=== PATIENT | male | born 1990 | race Caucasian/White ===

== ENCOUNTER 2018-05-03 14:15 | Emergency (ER) | payer OTHER ==
[2018-05-03 14:27] VITALS: BP 134/80; TEMP 99.4; BMI 23.6
[2018-05-03] MEDS ORDERED: POTASSIUM CHL 10% ORAL SOL PO STA (15:09)
--- NOTE | 2018-05-03 15:11 | CT ---
EXAM: CT abdomen and pelvis without contrast HISTORY: Nausea and vomiting TECHNIQUE: Multi-slice transaxial helical with coronal and sagittal reformed images COMPARISON: CT abdomen/pelvis from 11/12/2015 FINDINGS: The lung bases are free of acute airspace or interstitial opacities. The heart size is nor mal. There are no pericardial or pleural effusions. The hepatic attenuation is normal relative to the spleen. The gallbladder is present without biliary dilatation. The pancreas and adrenal glands are normal. The spleen has normal size attenuation. The kidneys and ureters are normal. The bladder is empty. The intestines maintain normal caliber. The appendix is normal. No lymphadenopathy or ascites are appreciated. The aorta has normal caliber . The bones are free of suspicious osteolytic or osteoblastic lesions. IMPRESSION: 1. Normal appendix. Nonobstructive intestinal gas pattern. 2. Normal renal collecting systems. 3. No biliary dilatation.
--- NOTE | 2018-05-03 15:21 | ED.PDOC ---
General ED Provider: Dr. ZEE MARIN-ER Chief Complaint: Nausea/Vomiting Stated Complaint: govind vomited off and on over the past week and also had diarrhea--no blood in the stool--i ate some fettucine and it made me sick Time Seen by Physician: 14:20 Mode of Arrival: Walk-In Information Source: Patient Exam Limitations: No limitations Nursing and Triage Documentation Reviewed and Agree: Yes Does patient meet sepsis criteria?: No System Inflammatory Response Syndrome: Not Applicable Sepsis Protocol: For patient's 13 years and over: Temp is 96.8 and below OR 101 and greater Pulse >90 BPM Resp >20/minute Acutely Altered Mental Status Are patient's symptoms suggestive of a new infection, such as: -Pneumonia -Skin, Soft Tissue -Endocarditis -UTI -Bone, Joint Infection -Implantable Device -Acute Abdominal Infection -Wound Infection -Meningitis -Blood Stream Catheter Infection -Unknown GI Complaint Exam - Vomiting/Diarrhea Complaint/Exam Onset/Duration: 1 week Symptoms Are: Still present Episodes of Vomiting over last 24 Hours: 1 Episodes of Diarrhea Over Last 24 Hours: 1 Initial Severity: Mild Current Severity: Mild Character of Vomiting: Reports: Non-bilious Character of Diarrhea: Reports: Watery Aggravating: Reports: Food Alleviating: Reports: None Associated Signs and Symptoms: Reports: Abdominal pain, Cramping Differential Diagnoses: Cholecystitis, Viral Gastroenteritis, Bacterial Gastroenteritis Review of Systems - Review Of Systems Constitutional: Reports: No symptoms Eyes: Reports: No symptoms Ears, Nose, Mouth, Throat: Reports: No symptoms Respiratory: Reports: No symptoms Cardiac: Reports: No symptoms GI: Reports: Abdominal pain, Diarrhea, Nausea : Reports: No symptoms Musculoskeletal: Reports: No symptoms Skin: Reports: No symptoms Neurological: Reports: No symptoms Endocrine: Reports: No symptoms Hematologic/Lymphatic: Reports: No symptoms All Other Systems: Reviewed and Negative Past Medical History - Past Medical History Previously Healthy: Yes Endocrine: Reports: None Cardiovascular: Reports: None Respiratory: Reports: None Hematological: Reports: None Gastrointestinal: Reports: None Genitourinary: Reports: None Neuro/Psych: Reports: None Musculoskeletal: Reports: None Cancer: Reports: None - Surgical History General Surgical History: Reports: Unknown - Family History Family History: Reports: Unknown - Social History Smoking Status: Never smoker Hx Substance Use: No (marijuana in past) Alcohol Screening: Occasionally Physical Exam - Physical Exam Appearance: Well-appearing, No pain distress, Well-nourished Eyes: REINA, EOMI, Conjunctiva clear ENT: Ears normal, Nose normal, Oropharynx normal Neck: Supple Respiratory: Airway patent, Breath sounds clear, Breath sounds equal, Respirations nonlabored Cardiovascular: RRR, Pulses normal, No rub, No murmur GI/: Soft, Nontender, No masses, Bowel sounds normal, No Organomegaly Musculoskeletal: Normal strength, ROM intact, No edema, No calf tenderness Skin: Warm, Dry, Normal color Neurological: Sensation intact, Motor intact, Reflexes intact, Cranial nerves intact, Alert, Oriented Psychiatric: Affect appropriate, Mood appropriate Interpretation - Radiology Interpretation Radiology Interpretation By: Radiologist Radiology Results: Negative Exam Interpreted: CT Scan Critical Care Note - Critical Care Note Total Time (mins): 0 Course - Course Hematology/Chemistry: 05/03/18 14:40 05/03/18 14:40 Orders, Labs, Meds: Lab Review 05/03/18 05/03/18 05/03/18 14:31 14:31 14:40 WBC 7.79 RBC 4.92 Hgb 14.3 Hct 41.1 L MCV 83.5 MCH 29.1 MCHC 34.8 RDW Coeff of Daja 12.6 Plt Count 222 Immature Gran % (Auto) 0.3 Neut % (Auto) 52.1 Lymph % (Auto) 32.5 [place] % (Auto) 9.0 Eos % (Auto) 5.6 Baso % (Auto) 0.5 Immature Gran # (Auto) 0.0 Neut # (Auto) 4.1 Lymph # (Auto) 2.5 [place] # (Auto) 0.7 Eos # (Auto) 0.4 Baso # (Auto) 0.0 ESR Pending Sodium Potassium Chloride Carbon Dioxide Anion Gap BUN Creatinine Estimated GFR (MDRD) BUN/Creatinine Ratio Glucose Calcium Total Bilirubin AST ALT Alkaline Phosphatase Total Protein Albumin Globulin Albumin/Globulin Ratio Amylase Lipase Urine Color Yellow Urine Clarity Cloudy Urine pH >=9.0 Ur Specific [place] 1.010 Urine Protein 1+ Urine Glucose (UA) Negative Urine Ketones Negative Urine Blood Negative Urine Nitrite Negative Urine Bilirubin 1+ Urine Urobilinogen 4.0 Ur Leukocyte Esterase Negative Ur Squamous Epith Cells Not present Amorphous Sediment 4+ Influ A Molecular Assay Negative by naat Influ B Molecular Assay Negative by naat 05/03/18 14:40 WBC RBC Hgb Hct MCV MCH MCHC RDW Coeff of Daja Plt Count Immature Gran % (Auto) Neut % (Auto) Lymph % (Auto) [place] % (Auto) Eos % (Auto) Baso % (Auto) Immature Gran # (Auto) Neut # (Auto) Lymph # (Auto) [place] # (Auto) Eos # (Auto) Baso # (Auto) ESR Sodium 138.2 Potassium 3.30 L Chloride 98.9 Carbon Dioxide 34.0 H Anion Gap 8.60 BUN 13.2 Creatinine 0.80 Estimated GFR (MDRD) 117.00 BUN/Creatinine Ratio 16.50 Glucose 99.4 Calcium 9.15 Total Bilirubin 1.35 H AST 41.7 ALT 77.0 H Alkaline Phosphatase 39.3 Total Protein 7.75 Albumin 4.71 Globulin 3.04 Albumin/Globulin Ratio 1.54 Amylase 189.1 H Lipase 92.3 Urine Color Urine Clarity Urine pH Ur Specific [place] Urine Protein Urine Glucose (UA) Urine Ketones Urine Blood Urine Nitrite Urine Bilirubin Urine Urobilinogen Ur Leukocyte Esterase Ur Squamous Epith Cells Amorphous Sediment Influ A Molecular Assay Influ B Molecular Assay Orders Category Date Time Status AMYLASE Stat LAB 05/03/18 14:40 Completed CBC W/ AUTO DIFF Stat LAB 05/03/18 14:40 Results COMPREHENSIVE METABOLIC PANEL Stat LAB 05/03/18 14:40 Completed ESR Stat LAB 05/03/18 14:40 Results FLU A/B MOLECULAR Stat LAB 05/03/18 14:31 Completed LIPASE Stat LAB 05/03/18 14:40 Completed MOLECULAR GROUP A STREP Stat LAB 05/03/18 14:31 Completed URINALYSIS C & S IF INDICATED Stat LAB 05/03/18 14:31 Completed Potassium Chloride [Potassium Chl 10% Oral Yoanna] MEDS 05/03/18 15:09 Discontinued 20 meq PO ONCE STA CT ABDOMEN/PELVIS WO CONTRAST Stat RADS 05/03/18 14:28 Completed Medications Discontinued Medications Generic Name Dose Route Start Last Admin Trade Name Freq PRN Reason Stop Dose Admin Potassium Chloride 20 meq 05/03/18 15:09 Potassium Chl 10% Oral Yoanna PO 05/03/18 15:10 ONCE STA Vital Signs: Temp Pulse Resp BP Pulse Ox 05/03/18 14:16 99.4 F 87 20 134/80 87 L Departure - Departure Time of Disposition: 15:21 Disposition: HOME SELF-CARE Discharge Problem: Enteritis Instructions: Enteritis (ED) Condition: Good Pt referred to PMD for follow-up: Yes IPMP verified?: No Additional Instructions: avoid dairy products for the next 3 days--zofran 4mg q 4hrs prn nausea #5---if symptoms persist--return or see pcp Allergies/Adverse Reactions: Allergies morphine Allergy (Unknown, Verified 05/03/18 14:23) Unknown Home Medications: Ambulatory Orders 1 [No Reported Medications] 05/03/18
== END 2018-05-03 16:00 | disposition home or self-care (01) ==
LOC: ED 14:15
DX: K52.9 Noninfective gastroenteritis and colitis, unspecified (principal)
CPT/HCPCS: 36415; 80053; 81001; 82150; 83690; 85025; 85651; 87502; 87651; 99283

== ENCOUNTER 2018-12-02 13:39 | Emergency (ER) ==
[2018-12-02 13:43] VITALS: BP 150/82; TEMP 98.6; BMI 24.8
--- NOTE | 2018-12-02 14:11 | ED.PDOC ---
General ED Provider: Dr. KIMBER SWAN Chief Complaint: Abscess Stated Complaint: rash vesicukar started dermatome of L3 , 4 days ago Time Seen by Physician: 13:45 (SEE PHOTOS SEEN WITH MESSI) Mode of Arrival: Walk-In Information Source: Patient Exam Limitations: No limitations Nursing and Triage Documentation Reviewed and Agree: Yes Does patient meet sepsis criteria?: No System Inflammatory Response Syndrome: Not Applicable (SEE PHOTOS) Sepsis Protocol: For patient's 13 years and over: Temp is 96.8 and below OR 101 and greater Pulse >90 BPM Resp >20/minute Acutely Altered Mental Status Are patient's symptoms suggestive of a new infection, such as: -Pneumonia -Skin, Soft Tissue -Endocarditis -UTI -Bone, Joint Infection -Implantable Device -Acute Abdominal Infection -Wound Infection -Meningitis -Blood Stream Catheter Infection -Unknown Skin Complaint Exam - Skin Rash/Itching Complaint/Exam Onset/Duration: 3 TO 4 DAYS SEE PHOTOS Initial Severity: Mild Current Severity: Mild Location: L3 dermatome see photos Aggravating: Reports: Clothing Alleviating: Reports: None Associated Signs and Symptoms: Denies: Difficulty breathing, Fever, Chills Skin Findings: Present: Vesicles Differential Diagnoses: Varicella Zoster Review of Systems - Review Of Systems Constitutional: Reports: No symptoms Eyes: Reports: No symptoms Ears, Nose, Mouth, Throat: Reports: No symptoms Respiratory: Reports: No symptoms Cardiac: Reports: No symptoms GI: Reports: No symptoms : Reports: No symptoms Musculoskeletal: Reports: No symptoms Skin: Reports: Rash (see photos ) Neurological: Reports: No symptoms Endocrine: Reports: No symptoms Hematologic/Lymphatic: Reports: No symptoms All Other Systems: Reviewed and Negative Past Medical History - Past Medical History Previously Healthy: Yes Endocrine: Reports: None Cardiovascular: Reports: None Respiratory: Reports: None Hematological: Reports: None Gastrointestinal: Reports: None Genitourinary: Reports: None Neuro/Psych: Reports: None Musculoskeletal: Reports: None Cancer: Reports: None - Surgical History General Surgical History: Reports: Unknown - Family History Family History: Reports: Unknown - Social History Smoking Status: Never smoker Hx Substance Use: No (marijuana in past) Alcohol Screening: Occasionally Physical Exam - Physical Exam Appearance: Well-appearing, No pain distress, Well-nourished Eyes: REINA, EOMI, Conjunctiva clear ENT: Ears normal, Nose normal, Oropharynx normal Respiratory: Airway patent, Breath sounds clear, Breath sounds equal, Respirations nonlabored Cardiovascular: RRR, Pulses normal, No rub, No murmur GI/: Soft, Nontender, No masses, Bowel sounds normal, No Organomegaly Musculoskeletal: Normal strength, ROM intact, No edema, No calf tenderness Skin: Warm, Dry (rash l3 dermatome see photos) Neurological: Sensation intact, Motor intact, Reflexes intact, Cranial nerves intact, Alert, Oriented Psychiatric: Affect appropriate, Mood appropriate Critical Care Note - Critical Care Note Total Time (mins): 0 Course - Course Vital Signs: Temp Pulse Resp BP Pulse Ox 12/02/18 13:39 98.6 F 82 18 150/82 H 96 Departure - Departure Time of Disposition: 14:12 Disposition: HOME SELF-CARE Discharge Problem: Shingles rash Qualifiers: Herpes zoster complications: without complications Qualified Code(s): B02.9 - Zoster without complications Instructions: Shingles (ED) Condition: Good Pt referred to PMD for follow-up: Yes IPMP verified?: No Additional Instructions: Please call your Family Physician as soon as possible to schedule a follow-up appointment. do not touch your eyes . this can be damaging to your eyes Allergies/Adverse Reactions: Allergies morphine Allergy (Unknown, Verified 12/02/18 13:43) Unknown Home Medications: Ambulatory Orders 1 [No Reported Medications] 05/03/18 Disposition Discussed With: Patient
== END 2018-12-02 14:26 | disposition home or self-care (01) ==
LOC: ED 13:39
DX: B02.9 Zoster without complications (principal)
CPT/HCPCS: 99282